=== PATIENT | female | born 1980 | race Caucasian/White ===

== ENCOUNTER 2019-05-15 00:38 | Emergency (ER) | payer OTHER ==
[~2019-05-15] VITALS: Ht 175.3 cm; Wt 114.0 kg
[2019-05-15] MEDS ORDERED: SODIUM CHLORIDE 0.9% 1,000 ML IV ONE (01:30)
[2019-05-15] MEDS ORDERED: LORAZEPAM 2MG/ML CPJ IV ONE (01:30)
[2019-05-15 01:43] LABS: BASOPHILS % 0.3 % (0.0-2.0); EOSINOPHILS % 0.2 % (0.0-5.0); LYMPHOCYTES % 22.2 % (20.0-50.0); MEAN CORPUSCULAR VOLUME 86.7 fL (81.0-99.0); MEAN PLATELET VOLUME 8.1 fl (7.4-10.4); MONOCYTES % 4.3 % (2.0-8.0); PLATELET 332 x1000/uL (130-400); RED CELL DISTRIBUTION WIDTH 14.2 % (11.6-14.6)
[2019-05-15 01:50] LABS: CHLORIDE 105 mEq/L (98-107)
[2019-05-15] MEDS ORDERED: IOHEXOL-350 100 ML BOTTLE ONE (02:46)
[2019-05-15 06:30] VITALS: BP 120/75
== END 2019-05-15 06:47 | disposition home or self-care (01) ==
LOC: ER 00:38
DX: R07.89 Other chest pain (principal); F41.9 Anxiety disorder, unspecified; R00.0 Tachycardia, unspecified; F12.10 Cannabis abuse, uncomplicated; Z98.890 Other specified postprocedural states
CPT/HCPCS: 36415; 71045; 71275; 80053; 83880; 84484; 85025; 93005; 96374; 99284; J2060; J7030; Q9967; Z7610